=== PATIENT | female | born 1970 | race Hispanic/Latino ===

== ENCOUNTER 2018-06-29 18:05 | Emergency (ER) | payer OTHER ==
[2018-06-29 18:31] VITALS: BP 121/81; PULSE 70; RESP 16; TEMP 98.5; O2SAT 97
--- NOTE | 2018-06-29 18:51 | ED PDOC ---
HPI: Head Injury Time Seen by Provider: 06/29/18 18:36 Chief Complaint (Nursing): Trauma Chief Complaint (Provider): head injury History Per: Patient History/Exam Limitations: no limitations Onset/Duration Of Symptoms: Hrs (approx 18) Patient States: Fell Striking Head Severity: Moderate Loss Of Consciousness: Unsure Additional Complaint(s): 47yo female states drank alcohol last night, fell onto concrete, was able to ambulate home awoke w headache nausea and felt cognitively slow, had mild word finding difficulties but no change vision, weakness, neck pain or back pain. Past Medical History Reviewed: Historical Data, Nursing Documentation, Vital Signs Vital Signs: Last Vital Signs Temp 98.5 F 06/29/18 18:30 Pulse 70 06/29/18 18:30 Resp 16 06/29/18 18:30 BP 121/81 06/29/18 18:30 Pulse Ox 97 06/29/18 18:30 Primary Care Provider: Non [facility] Provider, - Medical History PMH: No Chronic Diseases - Family History Family History: States: Unknown Family Hx - Social History Alcohol: Social - Allergies Allergies/Adverse Reactions: Allergies Allergy/AdvReac Type Severity Reaction Status Date / Time amoxicillin Allergy RASH Verified 06/29/18 18:33 doxycycline Allergy RASH Verified 06/29/18 18:33 erythromycin base Allergy RASH Verified 06/29/18 18:33 Review of Systems ROS Statement: Except As Marked, All Systems Reviewed And Found Negative Constitutional: Negative for: Fever Eyes: Negative for: Vision Change ENT: Negative for: Ear Pain, Throat Pain Cardiovascular: Negative for: Chest Pain Respiratory: Negative for: Cough Gastrointestinal: Positive for: Nausea. Negative for: Abdominal Pain Genitourinary Female: Negative for: Dysuria, Hematuria Musculoskeletal: Negative for: Neck Pain Skin: Negative for: Rash Neurological: Positive for: Change in Speech, Headache, Dizziness. Negative for: Weakness, Incoordination, Altered Mental Status Psych: Negative for: Suicidal ideation Physical Exam - Reviewed Nursing Documentation Reviewed: Yes Vital Signs Reviewed: Yes - Physical Exam Appears: Positive for: Well, Non-toxic, No Acute Distress Head Exam: Positive for: NORMOCEPHALIC. Negative for: ATRAUMATIC (+ forehead scalp hematoma ) Skin: Positive for: Normal Color, Warm, DRY Eye Exam: Positive for: Normal appearance, EOMI, PERRL. Negative for: Conjunctival injection, Scleral icterus ENT: Positive for: Normal ENT Inspection Neck: Positive for: Normal, Painless ROM Cardiovascular/Chest: Positive for: Regular Rate, Rhythm Respiratory: Positive for: CNT, Normal Breath Sounds Gastrointestinal/Abdominal: Positive for: Normal Exam, Soft Back: Positive for: Normal Inspection Extremity: Positive for: Normal ROM Neurological/Psych: Positive for: Awake, Alert, Normal Tone, Symmetric/Intact Strength, Oriented, Gait (normal), Cerebellar Tests (intact), stopperer assembler II-XII (intact). Negative for: Lethargic, Listless, Motor/Sensory Deficits, Facial Droop - ECG O2 Sat by Pulse Oximetry: 97 Medical Decision Making Medical Decision Making: workup for head injury w likely concussion r/o ICH, r/o skull fracture pt successfully able to count back from 100 by 7 took tylenol before arrival motrin 400mg and CT brain, concussive instructions Disposition - Clinical Impression Clinical Impression: Head injury, Concussion - Patient ED Disposition Is Patient to be Admitted: Transfer of Care Counseled Patient/Family Regarding: Studies Performed - Disposition Disposition: Transfer of Care Disposition Time: 18:58 Condition: STABLE Forms: [employer] ([employer]) Patient Signed Over To: Madison Collado Handoff Comments: pending CT brain
--- NOTE | 2018-06-29 19:51 | ED PDOC ---
- ECG O2 Sat by Pulse Oximetry: 97 Medical Decision Making Medical Decision Makin Patient had mechanical fall after drinking last night and has been showing signs of post-concussion disorder throughout the day. Patient care endorsed from Dr. Arenas to this provider pending CT brain official read. CT FINDINGS: BRAIN: No acute intraparenchymal hemorrhage. No mass lesion. No CT evidence for acute territorial infarct. No midline shift or extra-axial collections. VENTRICLES: No hydrocephalus. ORBITS: The orbits are unremarkable. SINUSES AND MASTOIDS: The paranasal sinuses and mastoid air cells are clear. BONES: No fracture. SOFT TISSUES: Unremarkable. IMPRESSION: No acute intracranial abnormality. 2024 Patient stable for discharge home with diagnosis of concussion. Return parameters and at home concussion care discussed. All questions answered. Scribe Attestation: Documented by Marly Osorio, acting as a scribe for Madison Collado MD. Provider Scribe Attestation: All medical record entries made by the Scribe were at my direction and personally dictated by me. I have reviewed the chart and agree that the record accurately reflects my personal performance of the history, physical exam, medical decision making, and the department course for this patient. I have also personally directed, reviewed, and agree with the discharge instructions and disposition. Disposition - Clinical Impression Clinical Impression: Head injury, Concussion - POA Present On Arrival: None - Disposition Disposition: Routine/Home Disposition Time: 20:26 Condition: STABLE Instructions: Concussion, Adult (DC), Minor Head Injury (DC), Head Injury Observation (DC) Forms: [id number] (Malagasy) Print Language: TRISTANIAN
--- NOTE | 2018-06-30 07:08 | CT ---
Date of service: 06/29/2018 PROCEDURE: CT HEAD WITHOUT CONTRAST. HISTORY: r/o ICH COMPARISON: None available. TECHNIQUE: Axial computed tomography images were obtained through the head/brain without intravenous contrast. Radiation dose: Total exam DLP = 733.43 mGy-cm. This CT exam was performed using one or more of the following dose reduction techniques: Automated exposure control, adjustment of the mA and/or kV according to patient size, and/or use of iterative reconstruction technique. FINDINGS: HEMORRHAGE: No intracranial hemorrhage. BRAIN: No mass effect or edema. No atrophy or chronic microvascular ischemic changes. VENTRICLES: Unremarkable. No hydrocephalus. CALVARIUM: Unremarkable. PARANASAL SINUSES: Unremarkable as visualized. No significant inflammatory changes. MASTOID AIR CELLS: Unremarkable as visualized. No inflammatory changes. OTHER FINDINGS: None. IMPRESSION: No evidence of acute intracranial hemorrhage intracranial collection mass effect or midline shift. Preliminary report was submitted by [facility] Radiology contains concordant findings.
== END 2018-06-29 21:15 | disposition home or self-care (01) ==
LOC: H.ER 18:05
DX: S06.0X0A Concussion without loss of consciousness, initial encounter (principal); W19.XXXA Unspecified fall, initial encounter; Y92.89 Other specified places as the place of occurrence of the external cause